=== PATIENT | female | born 1990 | race Caucasian/White ===

== ENCOUNTER 2019-12-07 00:37 | Emergency (ER) | payer SELFPAY ==
[~2019-12-07] VITALS: Ht 172.7 cm; Wt 63.5 kg
[2019-12-07 00:50] VITALS: BP 110/79
--- NOTE | 2019-12-07 00:54 | Emergency Room Report ---
History of Present Illness General Chief Complaint: Female Urogenital Problems Source: Patient Present Illness HPI This a 29-year-old female with no past medical history. She does have a history of previous UTI. She presents with chief complaint of urinary symptoms. She has been having urinary frequency, urgency for the last few days. She tried home remedy with probiotics and gihr-cfh-jrfxvby medication. No relief. Got worse tonight with increasing frequency urgency and pain. Now she has some right flank pain. No hematuria. Pain is 8 out of 10. Worse with urination. Better with rest. No fever but has chills. 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 Patient History Past Medical History: see triage record, old chart reviewed Past Surgical History: none Pertinent Family History: none Social History: Denies: smoking Last Menstrual Period: 11/22/19 Now: No : 0 Para: 0 Immunizations: other Reviewed Nursing Documentation: PMH: Agreed; PSxH: Agreed Nursing Documentation-PMH Past Medical History: No Stated History Review of Systems Constitutional: Reports: chills Eye: Denies: eye pain, blurred vision ENT: Denies: ear pain, nose congestion, throat swelling Respiratory: Denies: cough, shortness of breath Cardiovascular: Denies: chest pain, palpitations Gastrointestinal: Denies: abdominal pain, diarrhea, nausea, vomiting Genitourinary: Reports: dysuria, frequency, pain, urgency Musculoskeletal: Denies: back pain, joint pain Skin: Denies: rash Neurological: Denies: headache, numbness Endocrine: Denies: increased thirst, increased urine Hematologic/Lymphatic: Denies: easy bruising All Other Systems: negative except mentioned in HPI Physical Exam Vital Signs Date Time Temp Pulse Resp B/P (MAP) Pulse Ox O2 Delivery O2 Flow Rate FiO2 12/07/19 00:40 98.2 60 16 116/72 (87) 96 Room Air Vitals normal Sp02 EP Interpretation: reviewed, normal General Appearance: well appearing, no apparent distress, alert Head: normocephalic, atraumatic Eyes: bilateral eye PERRL, bilateral eye EOMI ENT: hearing grossly normal, normal pharynx Neck: full range of motion, supple, no meningismus Respiratory: chest non-tender, lungs clear, normal breath sounds Cardiovascular #1: regular rate, rhythm, no murmur Gastrointestinal: normal bowel sounds, non tender, no mass, no organomegaly, no bruit, non-distended Genitourinary: CVA tenderness (R) - Mild Musculoskeletal: back normal, normal range of motion, gait/station normal Psychiatric: mood/affect normal Medical Decision Making Diagnostic Impression: Primary Impression: Pyelonephritis ER Course Patient presents with UTI symptoms now early pyelonephritis. No evidence of any sepsis or toxicity. Dose of antibiotics given here. Last Vital Signs Date Time Temp Pulse Resp B/P (MAP) Pulse Ox O2 Delivery O2 Flow Rate FiO2 12/07/19 00:40 98.2 60 16 116/72 (87) 96 Room Air Status: improved Disposition: HOME, SELF-CARE Condition: Stable Scripts Ibuprofen* (MOTRIN*) 600 Mg Tablet 600 MG ORAL Q6H PRN for For Pain, #30 TAB 0 Refills Prov: Sukhdeep Lu MD 12/07/19 Phenazopyridine Hcl* (PYRIDIUM*) 200 Mg Tablet 200 MG ORAL THREE TIMES A DAY, #14 TAB 0 Refills Prov: Sukhdeep Lu MD 12/07/19 Cephalexin* (KEFLEX*) 500 Mg Capsule 500 MG ORAL TID, #30 CAP Prov: Sukhdeep Lu MD 12/07/19 Additional Instructions: Increase fluids. Follow-up with your doctor in 2 to 3 days for recheck if not better. Return if symptoms worsen. Sukhdeep Lu MD Dec 07, 2019 00:54
[2019-12-07] MEDS ORDERED: IBUPROFEN600 M1 ORAL (00:57)
[2019-12-07] MEDS ORDERED: CEPHALEXIN500 MG ORAL (00:57)
[2019-12-07] MEDS ORDERED: PHENAZOPYRIDIN200 MG ORAL (00:57)
[2019-12-07] MEDS ORDERED: Phenazopyridine 200mg tab ORAL ONE (01:00)
[2019-12-07] MEDS ORDERED: Cephalexin 500mg cap ORAL ONE (01:00)
[2019-12-07 01:01] LABS: BILIRUBIN, URINE NEGATIVE (NEGATIVE); COLOR,URINE PALE YELLOW; GLUCOSE, URINE (UA) NEGATIVE (NEGATIVE); KETONES,URINE 2+ (NEGATIVE); LEUKOCYTE ESTERASE ,URINE 3+ (NEGATIVE); NITRITE,URINE NEGATIVE (NEGATIVE); PH,URINE 6.5 (4.5-8.0); PROTEIN,URINE 3+ (NEGATIVE); UROBILINOGEN,URINE NORMAL MG/DL (0.0-1.0)
[2019-12-07 01:14] LABS: APPEARANCE,URINE SLIGHTLY CLOUDY
[2019-12-07 01:20] VITALS: BP 115/78
[2019-12-10] MEDS ORDERED: LEVOFLOXACIN500 MG ORAL (08:25)
== END 2019-12-07 01:20 | disposition home or self-care (01) ==
LOC: EMR 00:54
DX: N12 Tubulo-interstitial nephritis, not specified as acute or chronic (principal)
CPT/HCPCS: 81003; 87086; 87181; 99283